=== PATIENT | male | born 1940 | race Caucasian/White ===

== ENCOUNTER 2017-06-12 12:33 | Emergency (ER) | payer OTHER ==
[~2017-06-12] VITALS: Ht 175.3 cm; Wt 102.5 kg
[~2017-06-12 12:33] MED LIST: AMITRIPTYLINE H10 M3; AMITRIPTYLINE H25 M2 PO; ASPIR 8181 MG PO; ASPIRIN325 PO; ATORVASTATIN CA40 MG PO; CARVEDILOL6.25 MG PO; CENTRUM SILVER1 EAC4 PO; CLARITIN10 MG PO; COLACE100 MG PO; CYCLOBENZAPRINE5 MG PO; EFFIENT10 MG PO; FERREX 150 PLU1 EAC1 PO; FLONASE 0.05%50 MCG INH; GLUCOPHAGE1000 MG PO; HYDROCHLOROTHIA25 M2 PO; LIDODERM 5%1 PATC1 TRANSDERM; LISINOPRIL2.5 MG PO; LISINOPRIL20 MG PO; METROGEL55 GM; MILK OF MA2400 MG/10 PO; NITROGLYCERIN0.4 MG SUBLING; NORCO 5-325 TA1 EACH PO; PAXIL10 MG PO; SPIRIVA INH; SYMBICORT160 MCG/4. INH; TYLENOL325 MG PO; VENTOLIN HFA 1818 GM INH; VOLTAREN GEL 1100 G2; WELLBUTRIN 100100 MG PO; ZANTAC 150MG T150 MG PO; ZOLOFT50 MG PO
[2017-06-12 14:01] LABS: URINE BILIRUBIN NEGATIVE (Negative); URINE BLOOD 3+ (Negative); URINE CLARITY SL CLOUDY; URINE COLOR YELLOW; URINE GLUCOSE-RANDOM* NEGATIVE (Negative); URINE KETONES TRACE (Negative); URINE NITRITE-REFLEX NEGATIVE (Negative); URINE PROTEIN (DIPSTICK) 2+ (Negative); URINE UROBILINOGEN 0.2 E.U./dl (0.2-1.0)
[2017-06-12 14:04] LABS: URINE LEUKOCYTES-REFLEX 2+ (Negative)
[2017-06-12 14:12] LABS: HYALINE CASTS 4-10 Moderate /LPF (None Seen); SQUAMOUS 0-3 Few /LPF (0-3); URINE WBC-REFLEX 6-15 Few /HPF (0-5)
[2017-06-12 14:13] LABS: AMORPHOUS URATES Few /LPF (None Seen); BACTERIA-REFLEX 1-9 Few /HPF (None Seen)
[2017-06-12 14:28] LABS: ABSOLUTE NEUTROPHILS 8.2 thou/uL (1.4-8.2); BASOPHILS 0.3 % (0.0-2.0); HEMATOCRIT 27.6 % (42.0-52.0); HEMOGLOBIN 9.1 gm/dL (14.0-18.0); MCHC 32.8 g/dL (28.0-37.0); MCV 88.6 fL (80.0-100.0); PLATELET COUNT 246 thou/uL (150-400); POLYS 83.7 % (36.0-66.0); RBC 3.12 mil/uL (4.50-6.00); RDW 21.5 % (10.5-14.5); WBC 9.8 thou/uL (4.0-11.0)
[2017-06-12 14:35] LABS: CALCIUM 9.9 mg/dL (8.5-10.1); CREATININE 1.1 mg/dL (0.7-1.3); POTASSIUM 5.2 mmol/L (3.5-5.1)
[2017-06-12 17:22] VITALS: BP 124/76
== END 2017-06-12 17:21 ==
LOC: ER 12:33
PROVIDERS: Emergency Medicine
DX: R60.0 Localized edema (principal); E87.5 Hyperkalemia; J44.9 Chronic obstructive pulmonary disease, unspecified; E11.9 Type 2 diabetes mellitus without complications; E78.00 Pure hypercholesterolemia, unspecified; K21.9 Gastro-esophageal reflux disease without esophagitis; I25.2 Old myocardial infarction; M19.90 Unspecified osteoarthritis, unspecified site; Z90.49 Acquired absence of other specified parts of digestive tract; G47.30 Sleep apnea, unspecified; Z88.0 Allergy status to penicillin; Z87.891 Personal history of nicotine dependence

== ENCOUNTER 2017-06-19 11:50 | Emergency (ER) | payer OTHER ==
[~2017-06-19] VITALS: Ht 175.3 cm; Wt 102.5 kg
--- NOTE | ~2017-06-19 | EKG ---
[place] [address] [place] [address] ELECTROCARDIOGRAM REPORT Name: TORIBIO ALONZO 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1940 Requested By: Tory West Order Number: [id number] MD: Berny Anderson Measurements Intervals Lan[place] Rate: 89 P: NE: QRS: 62 QRSD: 129 T: 32 QT: 352 QTc: 429 Interpretive Statements Atrial flutter Right ventricular conduction delay Compared to ECG 01/19/2014 07:29:01 Premature ventricular complexes are no longer present atrial flutter has replaced sinus rhythm Electronically Signed On 06-20-2017 13:18:14 CDT by Berny Anderson [email or web address] <ELECTRONICALLY SIGNED> By: Berny Anderson MD, [facility] 06/20/17 1318 1308 130 Berny Anderson MD, FAC /EPI
[2017-06-19 12:54] LABS: ABSOLUTE NEUTROPHILS 13.3 thou/uL (1.4-8.2); HEMATOCRIT 31.1 % (42.0-52.0); HEMOGLOBIN 9.9 gm/dL (14.0-18.0); LYMPHOCYTES 1.6 % (24.0-44.0); MCH 28.7 pg (26.0-34.0); MCHC 31.8 g/dL (28.0-37.0); MCV 90.2 fL (80.0-100.0); MONOCYTES 3.4 % (1.0-8.0); PLATELET COUNT 204 thou/uL (150-400); RBC 3.44 mil/uL (4.50-6.00); RDW 21.2 % (10.5-14.5); WBC 14.1 thou/uL (4.0-11.0)
[2017-06-19 13:00] LABS: CALCIUM 9.2 mg/dL (8.5-10.1); POTASSIUM 4.4 mmol/L (3.5-5.1)
[2017-06-19 13:09] LABS: TROPONIN-I 0.07 ng/mL (<0.06)
[2017-06-19 13:27] LABS: BE(vivo) 0.2 mmol/L (-2 to +3); HCO3 24.9 mmol/L (22.0-26.0); PCO2 40.4 mmHg (35.0-45.0); PO2 186.5 mmHg (80.0-100.0); pH 7.407 (7.360-7.450); sO2 99.3 % (92.0-98.0)
[2017-06-19 15:08] VITALS: BP 112/74
== END 2017-06-19 15:10 ==
LOC: ER 11:50
PROVIDERS: Emergency Medicine
DX: R06.00 Dyspnea, unspecified (principal); E11.9 Type 2 diabetes mellitus without complications; J44.9 Chronic obstructive pulmonary disease, unspecified; M19.90 Unspecified osteoarthritis, unspecified site; Z90.49 Acquired absence of other specified parts of digestive tract; F41.9 Anxiety disorder, unspecified; F32.9 Major depressive disorder, single episode, unspecified; E78.00 Pure hypercholesterolemia, unspecified; K21.9 Gastro-esophageal reflux disease without esophagitis; G47.30 Sleep apnea, unspecified; Z95.5 Presence of coronary angioplasty implant and graft; Z88.0 Allergy status to penicillin; Z87.891 Personal history of nicotine dependence; Z88.1 Allergy status to other antibiotic agents; Z99.11 Dependence on respirator [ventilator] status

== ENCOUNTER 2017-07-18 16:13 | Inpatient (IN) | payer OTHER ==
[~2017-07-18] VITALS: Ht 175.3 cm; Wt 95.7 kg
--- NOTE | ~2017-07-18 | CNG ---
[facility] [place] [address] CYTO-NONGYN REPORT PROCEDURE Name: TORIBIO RADER Room #: 352-P ADM IN M.R.#: [id number] Admission: 07/18/17 Date of : 42 Discharge: Report #: [id number] Path Case #: [id number] CYTOPATHOLOGY REPORT COLLECTION DATE: 07/19/2017 RECEIVED DATE: 07/20/2017 SUBMITTING PHYS: Dr. Brayan Bledsoe OTHER PHYS: Dr. Mauricio Gupta CLINICAL HISTORY: CHF, cardiomyopathy SPECIMEN(S) RECEIVED: A.Pleural fluid * * * * * * * * * * * * FINAL DIAGNOSIS: A. Pleural fluid: - No malignant cells identified. Paucicellular specimen with rare scattered mesothelial cells and inflammatory cells. PATHOLOGIST: Hilda Verduzco M.D. REPORT ELECTRONICALLY SIGNED BY: Hilda Verduzco M.D. DATE/TIME: 07/21/2017 12:52 * * * * * * * * * * * * GROSS PATHOLOGY: A. Pleural fluid: The specimen is submitted unfixed, labeled "Toribio Rader". Received by the Cytology Department is 16 mL of clear yellow fluid. One ThinPrep slide and a formalin fixed cell block were prepared. (lg 07.20.2017) AUTOMOTIVE DESIGNER(S): DENISHA Roach[facility] INITIAL CPT CODE(S): A; 20460, 53634 Professional services performed by [facility] at [facility] [address] [address] Technical services performed by [facility] at [address] [place] [address]., [address], [place] [address]. [facility] [address] [place] [address], [facility] [address] [place] [address] PHONE: [phone] [facility] [address] [place] [address] CYTO-NONGYN REPORT PROCEDURE Name: TORIBIO RADER Room #: 352-P ADM IN .R.#: [id number] Admission: 07/18/17 Date of : 42 Discharge: Report #: [id number] Path Case #: [id number] DIRECTOR: Wilman Anderson M.D. * * * END OF REPORT * * *
--- NOTE | ~2017-07-18 | 2DMMODE ---
[facility] [address] [place] [address] 2 D/M-MODE ECHOCARDIOGRAM Name: TORIBIO ALONZO Room #: 352-P ADM IN ..#: [id number] Admission: 07/18/17 Attend Phys: Mauricio Lopez Discharge: Date of : 42 Date of Service: 07/19/17 1347 Report #: [id number] THIS REPORT FOR: //name// APPROVED REPORT Study performed: 07/19/2017 12:09:23 EXAM: Comprehensive 2D, Doppler, and color-flow Echocardiogram Patient Location: Bedside Room #: [facility] Status: routine BSA: 2.13 HR: 108 bpm BP: 117/72 mmHg Rhythm: Atrial Fibrillation Other Information Study Quality: Fair Technically limited study due to no patient mobility, flat on back on vent.. Indications CAD, CHF, AFIB. Hx: [place], stents, DM, COPD Echo Enhancing Agent Indication: Endocardial border delineation Agent(s) / Amount(s) Used: Optison 4 cc 2D Dimensions LVEF(%): 39.13 (>50%) IVSd: 9.30 (7-11mm) LVOT Diam: 21.83 (18-24mm) LVDd: 55.62 mm PWd: 9.89 (7-11mm) LVDs: 44.93 (25-40mm) Aortic Root: 32.15 mm Gomez's LVEF: 39.13 % Volumes Left Atrial Volume (Systole) Single Plane 4CH: 60.87 mL Single Plane 2CH: 76.02 mL LA ESV Index: 35.00 mL/m2 Aortic Valve AoV Peak Gadiel.: 1.69 m/s AO Peak Gr.: 18.65 mmHg LVOT Max P.49 mmHg [facility] [address] [place] [address] 2 D/M-MODE ECHOCARDIOGRAM Name: TORIBIO ALONZO Room #: 352-P [facility] IN ..#: [id number] Admission: 07/18/17 Attend Phys: Mauricio Lopez Discharge: Date of : 42 Date of Service: 07/19/17 1347 Report #: [id number] LVOT Max V: 1.16 m/s ALESSIA Vmax: 2.56 cm2 Mitral Valve MV Decel. Time: 209.35 ms MV E Max Gaidel.: 1.23 m/s Pulmonary Valve PV Peak Gadiel.: 0.85 m/s PV Peak Gr.: 2.91 mmHg Tricuspid Valve TR Peak Gadiel.: 2.59 m/s RAP Estimate: 10.00 mmHg TR Peak Gr.: 26.78 mmHg PA Pressure: 37.00 mmHg Left Ventricle The left ventricle is normal size. Severe apical hypokinesis, no apical thrombus. The basal inferior and lateral romero are moderately hypokinetic. There is normal left ventricular wall thickness. Left ventricular systolic function is moderately decreased. LVEF is 35-40%. Severe diastolic dysfunction is present (restrictive filling). Right Ventricle Right ventricle is not well visualized. The right ventricular systolic function is normal. Atria Left atrium is mildly dilated. The right atrium size is normal. Aortic Valve The Aortic valve is sclerotic. Trace aortic regurgitation. There is no aortic valvular stenosis. Mitral Valve The mitral valve is normal in structure. Moderate to severe mitral regurgitation No evidence of mitral valve stenosis. Tricuspid Valve The tricuspid valve is normal in structure. Mild tricuspid regurgitation. Estimated PAP is 35-40mmHg. Pulmonic Valve The pulmonary valve is normal in structure. Trace pulmonic regurgitation. [facility] [email or web address] [address] 2 D/M-MODE ECHOCARDIOGRAM Name: CHERITORIBIO Bambi Room #: 352-P [facility] IN .R.#: [id number] Admission: 07/18/17 Attend Phys: Mauricio Lopez Discharge: Date of : 42 Date of Service: 07/19/17 1347 Report #: [id number] Great Vessels The aortic root is normal in size. IVC is dilated and collapses <50% with inspiration. Pericardium There is no pericardial effusion. Pleural effusion noted. <Conclusion> The left ventricle is normal size. Severe apical hypokinesis, no apical thrombus. The basal inferior and lateral romero are moderately hypokinetic. LVEF is 35-40%. Severe diastolic dysfunction Left atrium is mildly dilated. There is no aortic valvular stenosis. Trace aortic regurgitation. Moderate to severe mitral regurgitation Mild tricuspid regurgitation. Estimated PAP is 35-40mmHg. IVC is dilated and collapses <50% with inspiration. <ELECTRONICALLY SIGNED> By: Nolan Sanders MD, FACC 07/19/17 1347 134 134 Nolan Sanders MD, FACC /INF
--- NOTE | ~2017-07-18 | HC ---
[facility] [address] CONSULTATION Name: TORIBIO ALONZO Room #: 352-P ADM IN M.R.#: [id number] Admission: 07/18/17 Attend Phys: Kris Gonzáles Discharge: Date of : 42 Report #: [id number] THIS REPORT FOR: //name// CC: Mauricio Gupta DATE OF SERVICE: 07/19/2017 PULMONARY CONSULTATION REFERRING PHYSICIAN: Dr. Rutherford. REASON FOR REFERRAL: Chronic respiratory failure. HISTORY OF PRESENT ILLNESS: The patient is a 76-year-old white male who was transferred from [facility] for pulmonary and cardiac evaluation. A pulmonary consultation was requested. The patient several months. He was hospitalized around April of 2017 at [facility]. There, he sustained respiratory failure along with cardiac arrest. He subsequently had a tracheostomy placed and was sent to [facility]. While he was at [facility], weaning was attempted, this was not successful. It is possible that the patient may benefit from repeat cardiac and pulmonary evaluation and perhaps reconsider weaning trials again. Currently, he is tolerating the mechanical ventilation. He denies any dyspnea. He is awake, alert, follows commands. He moves all extremities. The patient says he has smoked for many years, he quit recently. He has been told that he has COPD. PAST MEDICAL HISTORY: Incomplete. According to records includes history of coronary artery disease, undergoing coronary artery bypass surgery, diabetes mellitus type 2, paroxysmal atrial fibrillation, history of acute kidney injury, apparent cardiac arrest on his last admission. PAST SURGICAL HISTORY: As mentioned above, status post tracheostomy, PEG tube placement. ALLERGIES: PENICILLIN AND GABAPENTIN, REACTIONS NOT SPECIFIED. CURRENT MEDICATIONS: Reviewed in the MAR. FAMILY HISTORY: Noncontributory. [facility] [address] [place] [address] CONSULTATION Name: TORIBIO ALONZO Room #: 352-P ADM IN M.R.#: [id number] Admission: 07/18/17 Attend Phys: Kris Gonzáles Discharge: Date of : 42 Report #: [id number] SOCIAL HISTORY: Tobacco history: As mentioned above. He is . No history of alcohol abuse. REVIEW OF SYSTEMS: As mentioned above, otherwise unremarkable. PHYSICAL EXAMINATION: GENERAL: He is awake, alert, in no apparent distress. VITAL SIGNS: Temperature is 99 degrees Fahrenheit, pulse is 100, respiratory rate is 20, blood pressure 100/60 mmHg, saturation 99%. HEENT: Normocephalic, atraumatic. NECK: Supple, without lymphadenopathy or thyromegaly, status post tracheostomy. CHEST: Breath sounds are fair with mild expiratory wheezes. CARDIOVASCULAR: Normal S1, S2. There are no murmurs or gallop. There is no JVD. There is no carotid bruit. Pulses are 2+/4+ bilaterally. ABDOMEN: Soft, nontender, no organomegaly or masses felt. GENITOURINARY: Deferred. RECTAL: Deferred. EXTREMITIES: There is no edema, cyanosis or clubbing. LABORATORY DATA: Portable chest x-ray shows cardiomegaly, mild bilateral interstitial infiltrates, appears to be chronic from prior chest x-rays. Appears to be subtle evidence of mild bilateral pleural effusions. Echocardiogram performed earlier today showed ejection fraction of 35-40%, apical hypokinesis, severe diastolic dysfunction. Pulmonary artery pressure measuring 35-40 mmHg. EKG shows atrial flutter. Electrolytes are normal. Liver enzymes are mildly elevated. WBC 6600, hemoglobin is 8.6, platelets are normal. Albumin 2.2. IMPRESSION: 1. Chronic respiratory failure in this 76-year-old white male. He underwent tracheostomy in April of this year following his hospitalization acute respiratory failure, apparent cardiac arrest. 2. Coronary artery disease with ischemic cardiomyopathy, ejection fraction 35%. He has had prior coronary bypass surgery. 3. Chronic obstructive pulmonary disease, remote history of tobacco use. Examination today shows presence of bilateral wheezing. 4. Pleural effusions. Chest x-ray shows mild pleural effusion. We will consider ultrasound. If pleural effusion is significant, thoracentesis will be recommended. 5. Severe protein calorie malnutrition with the current albumin level as mentioned above. 6. Diabetes mellitus, type 2. RECOMMENDATION AND DISCUSSION: I will await cardiac evaluation. In terms of pulmonary status, he does have bronchospasm. I would recommend trial of corticosteroids and continue bronchodilator therapy. [address] [address] CONSULTATION Name: TORIBIO ALONZO Room #: 352-P ADM IN M.R.#: [id number] Admission: 07/18/17 Attend Phys: Kris Gonzáles Discharge: Date of : 42 Report #: [id number] I do agree that the patient appears to be weanable from the ventilator. Deep venous thrombosis and gastrointestinal prophylaxis recommended. Recommend nutritional support. Thank you for this consultation. <ELECTRONICALLY SIGNED> By: Brayan Bledsoe MD 07/20/17 1311 1515 1844 Brayan Bledsoe MD /nt
--- NOTE | ~2017-07-18 | EKG ---
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1940 Requested By: Nolan Sanders Order Number: [id number] MD: Alex Schulz Measurements Intervals [place] Rate: 106 P: IN: QRS: 54 QRSD: 102 T: 23 QT: 347 QTc: 461 Interpretive Statements Atrial flutter Low voltage, extremity and precordial leads RSR' in V1 or V2, right VCD or RVH Baseline wander in lead(s) V6 Compared to ECG 06/19/2017 13:08:35 Low QRS voltage now present Right ventricular hypertrophy now present RSR' in V1 or V2 now present Electronically Signed On 07-19-2017 10:08:30 CDT by Alex Schulz [email or web address] <ELECTRONICALLY SIGNED> By: Alex Schulz MD 07/19/17 1008 5 5 Alex Schulz MD /EPI
--- NOTE | ~2017-07-18 | CATHLAB ---
[facility] [address] [facility] [place] [address] INVASIVE PROCEDURE REPORT Name: TORIBIO ALONZO Room #: 352-P DIS IN [facility]#: [id number] Admission: 07/18/17 Attend Phys: Mauricio Lopez Discharge: 07/25/17 Date of : 42 Date of Service: 07/26/17 1253 Report #: [id number] THIS REPORT FOR: //name// APPROVED REPORT Study performed: 07/25/2017 07:16:57 Patient Details Patient Status: In-Patient Room #: The patient is a 76 year-old male Procedures Performed cardiac cath Indication Dyspnea, Heart failure Risk Factors Hypercholesterolemia, Coronary Artery DiseaseRenal Failure, Diabetes Previous Procedures/Diagnoses Previous CABGPrevious PCI Procedure Narrative The patient was brought electively to the Cardiac Catheterization Laboratory and was prepped and draped in a sterile manner. The right femoral was infiltrated with 1% Lidocaine subcutaneous anesthesia. A 6 fr sheath was inserted into the right femoral artery. Coronary angiography was performed using coronary diagnostic catheters. The right coronary system was accessed and visualized with a Diagnostic catheter. The left coronary system was accessed and visualized with a Diagnostic catheter. Left ventricular/Aortic Valve gradient assessed via catheter pullback. Pre-demployment femoral angiogram was performed . Closure device was deployed with a 6 Fr Mynx. The patient tolerated the procedure well and there were no complications associated with the procedure. There was no hematoma. Unable to cannulate ostium of bland because of tortuous subclavian artery. However, BLAND visualized with flush injecction of subclavian using bland catheter. SVG to rca visualized with right svg catheter. SVG to circumflex visualized with right natalie catheter. Intraoperative Conscious Sedation Sedation start time: 8.02 Case end Time: 8.[address] [facility] [address] [place] [address] INVASIVE PROCEDURE REPORT Name: TORIBIO ALONZO Room #: 352-P [facility].#: [id number] Admission: 07/18/17 Attend Phys: Mauricio Lopez Discharge: 07/25/17 Date of : 42 Date of Service: 07/26/17 1253 Report #: [id number] Fluoro Time: 7.18 minutes Dose: DAP 34035.30 cGycm2 1251 mGy Contrast Type and Amount: Visipaque 150 ml Coronary Angiography The patient's coronary anatomy is right dominant. [place] Artery Percent Stenosis Flush injection of subclavian demonstrated patent bland graft to lad. SVG to diagonal with jump graft to 3 marginal branches was patent. SVG to pda of rca was patent without restenosis of stent in ostium of graft Diagnostic Cath Left Main 0% stenosis LAD mid lad chronically occluded Circumflex stent in mid circumflex chronically occluded Right Coronary proximal rca chronically occluded Left Ventriculography Left Ventriculography was not performed. Hemodynamics The aortic pressure is 115/71 mmHg with a mean of 81 mmHg. The left ventricular pressure is 101/20 mmHg with a mean of mmHg. The left ventricular end diastolic pressure is 25 mmHg. There was no gradient across the aortic valve upon pullback. Pullback from the left ventricle to the aorta revealed no gradient across the aortic valve. Conclusion 1. elevated LVEDP 2. Chronic occlusion of lad, circumflex, and rca 3. patent bland graft to lad 4. patent svg to diagonal and 3 marginal branches of the circumflex 5. svg to rca was patent with no restenosis of stent in the ostium of the graft Recommendations additional diuresis [facility] [address] [address] INVASIVE PROCEDURE REPORT Name: ALONZOTORIBIO Bambi Room #: 352-P [facility] IN .R.#: [id number] Admission: 07/18/17 Attend Phys: Mauricio Lopez Discharge: 07/25/17 Date of : 42 Date of Service: 07/26/17 1253 Report #: [id number] recommend anticoagulation because of atrial flutter add coreg and aldactone <ELECTRONICALLY SIGNED> By: Guanako Luke MD, FACC 07/26/17 1253 1253 1253 Guanako Luke MD, FACC /INF
--- NOTE | ~2017-07-18 | D ---
[facility] [place] [address] DISCHARGE SUMMARY Name: TORIBIO ALONZO Room #: 352-P [facility] IN M.R.#: [id number] Admission: 07/18/17 Attend Phys: Kris Gonzáles Discharge: 07/25/17 Date of : 42 Report #: [id number] THIS REPORT FOR: //name// CC: Mauricio Gupta DATE OF SERVICE: 07/25/2017 FINAL DIAGNOSES: 1. Acute cardiac arrest. 2. Ischemic cardiomyopathy. 3. Coronary artery disease. 4. Chronic hypoxic respiratory failure. 5. Chronic kidney disease. 6. Acute on chronic systolic congestive heart failure. HOSPITAL COURSE: The patient was admitted electively from [facility] for evaluation of treatable cardiac disease. He had a recent history of chronic respiratory failure and had failed to wean successfully from the ventilator for any significant amount of time. He had known coronary artery disease. Echocardiogram revealed ejection fraction of 35%. He was also noted to have a left pleural effusion, which he underwent a thoracentesis. He was also found to have significant edema and anasarca related to underlying congestive heart failure from cardiomyopathy and chronic kidney disease. He was followed by the Pulmonary, Cardiology, and Renal services during his stay and received others usual supportive care including usual medications, diet and ventilator care. Dr. Wade adjusted medications and he was beginning to diurese to some degree with a 2-3 kg weight loss over the last couple of days. As mentioned, he had a successful thoracentesis. The Pulmonary Service did not feel his status was stable enough to attempt ventilator weaning at this point. He underwent cardiac catheterization by Dr. Connelly; please see that separately dictated report, but it appears there were no treatable lesions. He was noted to have a cardiomyopathy with EF of 35%. Then, on the evening of 07/25/2017, he developed sudden bradycardia, which progressed almost instantly to pulseless electrical activity and asystole. A code blue was called and managed in the usual fashion. According to the report, he never regained a stable rhythm. He was pronounced due to his underlying medical conditions. <ELECTRONICALLY SIGNED> By: Guanako Rutherford MD 07/27/17 0829 1313 1324 Guanako Rutherford MD /nt
--- NOTE | ~2017-07-18 | H ---
[facility] [place] [address] HISTORY AND PHYSICAL Name: ALONZOTORIBIO Bambi Room #: 352-P ADM IN M.R.#: [id number] Admission: 07/18/17 Attend Phys: Kris Gonzáles Discharge: Date of : 42 Report #: [id number] THIS REPORT FOR: //name// CC: Mauricio Gupta DATE OF SERVICE: 07/18/2017 CHIEF COMPLAINT: Shortness of breath. HISTORY OF PRESENT ILLNESS: The patient is a 76-year-old gentleman admitted from [facility] for cardiac and pulmonary evaluation due to his respiratory failure. He had a recent illness treated at an outlying facility and has been at the LTAC facility for several months on the ventilator. He had an acute kidney injury and is requiring hemodialysis. His kidneys recovered and dialysis has ended several weeks ago. He had a slow weaning process, but gradually was able to wean from the ventilator briefly. There was a period where he was on trach shield and capping trials, but this did not last. He was back in the skilled portion and then readmitted to the LTAC for ventilator weaning; however, what the Pulmonary and Medicine Services are seeing now is that any attempts at CPAP trials, he develops hypoxia and some chest pain. The working possibility is that he has underlying ischemic heart disease that is limiting his ventilator weaning attempts. The requested plan is for cardiac evaluation including catheterization to assess for ischemic lesions and pulmonary assessment with consideration of thoracentesis for bilateral pleural effusions, then reattempt ventilator weaning. PAST MEDICAL HISTORY: Coronary artery disease. He had bypass surgery several years ago, recent acute kidney injury, recent respiratory failure, diabetes type 2, paroxysmal AFib. FAMILY HISTORY: Noncontributory. SOCIAL HISTORY: Unknown. ALLERGIES: PENICILLIN AND GABAPENTIN. MEDICATIONS: Please see the nursing list from the facility. REVIEW OF SYSTEMS: He complains of some chest discomfort. No nausea, vomiting, diarrhea, constipation. PHYSICAL EXAMINATION: VITAL SIGNS: Temperature 37.2, pulse 107, respirations 20, blood pressure 103/60. GENERAL: He is awake and alert. LUNGS: Clear. [facility] [address] [place] [address] HISTORY AND PHYSICAL Name: ALONZOTORIBIO Bambi Room #: 352-P [facility] IN M.R.#: [id number] Admission: 07/18/17 Attend Phys: Kris Gonzáles Discharge: Date of : 42 Report #: [id number] HEART: Regular. ABDOMEN: Soft, normoactive bowel sounds. EXTREMITIES: No edema. ASSESSMENT: 1. Ischemic heart disease. 2. Coronary artery disease with remote history of cardiac bypass. 3. Chronic hypoxic respiratory failure. 4. Ventilator dependence. 5. Acute kidney injury, resolved. 6. Diabetes type 2. 7. Pleural effusions. 8. Anemia of chronic disease. 9. Moderate protein-calorie malnutrition. PLAN: I have asked the Cardiovascular and Pulmonary services to assess him and consider cardiac catheterization and thoracentesis. <ELECTRONICALLY SIGNED> By: Guanako Rutherford MD 07/20/17 0822 1239 1252 Guanako Rutherford MD /von
--- NOTE | ~2017-07-18 | HC ---
[facility] [place] [address] CONSULTATION Name: TORIBIO ALONZO Room #: 352-P [facility] IN M.R.#: [id number] Admission: 07/18/17 Attend Phys: Kris Gonzáles Discharge: Date of : 42 Report #: [id number] THIS REPORT FOR: //name// CC: Mauricio Gupta DATE OF SERVICE: 07/21/2017 ATTENDING PHYSICIAN:, Dr. Rutherford. REASON FOR CONSULTATION: Elevating creatinine and hyperkalemia. HISTORY OF PRESENT ILLNESS: This 76-year-old patient, known to our service, had an out of hospital cardiac arrest in April, acute renal failure requiring dialysis and was on dialysis for several weeks, eventually weaned off dialysis, was at [facility] where we saw him, managed appropriately. Attempts at weaning off the ventilator were unsuccessful. He was briefly off but back on the ventilator and is now still on the ventilator and transferred to this hospital for further evaluation of possible ischemic cardiac disease. He has known previous coronary bypass and both systolic and diastolic dysfunction on echocardiogram. PAST MEDICAL HISTORY: Diabetes mellitus, previous coronary bypass, chronic atrial fibrillation, previous out of hospital cardiac arrest and resuscitation as mentioned, previous knee replacements, cholecystectomy and orchiectomy, presumably for prostate cancer. He also has a previous history of sleep apnea. FAMILY HISTORY: Noncontributory. SOCIAL HISTORY: Heavy smoker, not smoking anymore obviously. ALLERGIES: REPORTEDLY TO PENICILLIN. CURRENT MEDICATIONS: Include Albuterol ProAir inhaler, aspirin 81 mg daily, Lipitor 40 mg daily, Wellbutrin 100 mg b.i.d., Cardizem 60 mg every 6 hours, Lovenox, furosemide 40 mg p.o. daily, insulin, IV methylprednisolone 40 mg q.8, omeprazole 40 mg daily. He had been on potassium 40 mEq twice daily, last administered yesterday. REVIEW OF SYSTEMS: Cannot be taken. The patient is awake. He is on the ventilator through tracheostomy. PHYSICAL EXAMINATION: GENERAL: This is a chronically ill-appearing gentleman. He is awake, following simple commands. SKIN: Unremarkable. SKELETAL: Well developed, well nourished. [facility] [address] [place] [address] CONSULTATION Name: TORIBIO ALONZO Room #: 352-P [facility] IN ..#: [id number] Admission: 07/18/17 Attend Phys: Kris Gonzáles Discharge: Date of : 42 Report #: [id number] HEENT: Extraocular movements are full. No scleral icterus. Hearing and vision seem to be grossly intact. Tracheostomy tube in place. CHEST: Shows coarse breath sounds with wheezing. HEART: Irregular and distant. ABDOMEN: Soft, nontender and somewhat distended. EXTREMITIES: Show 1+ peripheral lower extremity edema. LABORATORY DATA: Sodium 133, potassium 6, chloride 98, bicarbonate 26, BUN 46, creatinine 1.6, glucose 217. ASSESSMENT: 1. Elevating creatinine. Creatinine is up from 0.9 to 1.6. He was getting high doses of potassium, along with that his potassium is up to 6, but inspection of his monitor tracing shows no evidence of hyperkalemic changes. He has chronic atrial fibrillation. If anything, he is tachycardic. Treatment will include continuation of IV Lasix, discontinuation of the potassium, treatment of his blood sugar. Volume status does appear to still be elevated despite the Lasix and elevating creatinines and blood pressures are a bit lower I believe and that may be contributing to his decreased renal perfusion and renal function. He does have a Hoskins catheter in place as well. 2. Congestive heart failure, both systolic and diastolic. 3. Advanced chronic obstructive pulmonary disease with respiratory failure, on chronic ventilator. 4. Coronary artery disease, status post bypass. 5. Diabetes mellitus. By: 1023 [id number] Florencio Wade MD /nt
--- NOTE | ~2017-07-18 | EKG ---
[address] [address] ELECTROCARDIOGRAM REPORT Name: TORIBIO ALONZO Room #: 352-P ADM IN M.R.#: [id number] Admission: 07/18/17 Attend Phys: Kris Gonzáles Discharge: Date of : 42 Report #: [id number] THIS REPORT FOR: //name// [facility] Test Date: 2017-07-21 Test Time: 09:53:08 Pat Name: TORIBIO ALONZO Department: Room: 352 Gender: M [employer] Clerk: Jesse PAEZ : 1940 Requested By: Florencio aWde Order Number: [id number] MD: Alex Schulz Measurements Intervals [place] Rate: 100 P: [place]: QRS: 77 QRSD: 101 T: 41 QT: 340 QTc: 439 Interpretive Statements Atrial flutter Low voltage, extremity and precordial leads RSR' in V1 or V2, probably normal variant Electronically Signed On 07-21-2017 14:03:04 CDT by Alex Schulz [email or web address] <ELECTRONICALLY SIGNED> By: Alex Schulz MD 07/21/17 1403 Alex Schulz MD /CHERELLE
--- NOTE | ~2017-07-18 | HC ---
[facility] [place] [address] CONSULTATION Name: TORIBIO ALONZO Room #: 352-P ADM IN ..#: [id number] Admission: 07/18/17 Attend Phys: Kris Gonzáles Discharge: Date of : 42 Report #: [id number] THIS REPORT FOR: //name// CC: Mauricio Gupta DATE OF SERVICE: 07/19/2017 CHIEF COMPLAINT: Respiratory failure. HISTORY OF PRESENT ILLNESS: The patient is a 76-year-old man with respiratory failure, status post tracheotomy who was transferred from the [facility] to this institution. He is status post tracheostomy, all history was obtained from chart records. A brief HPI was able to be obtained and the patient is currently complaining of some mild chest discomfort. He also complains of pain Hoskins catheter. PAST MEDICAL HISTORY: Obtained from chart records and indicates that he is status post respiratory failure, admitted on 04/21/2017, with respiratory failure, status post out of hospital cardiac arrest and intubation. I do not know which hospital he had come from originally, he had complication of atrial flutter, acute kidney injury, and hypoxic brain injury. Other past medical history significant for prior coronary artery bypass graft surgery at this institution, LV function status is not known. He has morbid obesity and sleep apnea. PAST SURGICAL HISTORY: Bilateral knee replacements, cholecystectomy, and orchiectomy. FAMILY HISTORY: Noncontributory. [id number]-[id number] smoker, but he had quit. ALLERGIES: To GABAPENTIN and PENICILLIN. MEDICATIONS: DuoNeb, Lipitor, Cardizem, Reglan, and Protonix. REVIEW OF SYSTEMS: Not obtainable. PHYSICAL EXAMINATION: VITAL SIGNS: Blood pressure is 130s/70s, pulse is in the 100s. GENERAL: The patient is alert, in no apparent distress. NECK: Supple. No jugular venous distention. Tracheostomy site is clean, dry dressing. CARDIOVASCULAR: Irregular. LUNGS: Breath sounds are coarse bilaterally. [facility] [address] [place] [address] CONSULTATION Name: TORIBIO ALONZO Room #: 352-P [facility] IN .R.#: [id number] Admission: 07/18/17 Attend Phys: Kris Gonzáles Discharge: Date of : 42 Report #: [id number] ABDOMEN: Nontender. EXTREMITIES: There is no peripheral edema. LAB DATA: There are no labs from this institution. From the [facility], his BUN was 30 and his creatinine was 0.6. IMPRESSION: 1. Congestive heart failure. Continue diuretics, matching his I's and O's. We will check an echocardiogram to assess left ventricular function. 2. Coronary artery disease, status post coronary artery bypass graft. He is status post cardiac arrest. We will continue with telemetry monitoring. An ischemic workup is not indicated because of his poor performance status. 3. Hypertension. We will continue with Cardizem via his PEG. 4. Atrial arrhythmias. As noted above, we will continue with current medical therapy with Cardizem. We will have to investigate as to whether or not he was anticoagulated at the other institution. Records are not available at this time. By: 0900 1001 Nolan Sanders MD, FACC /nt
[2017-07-18 20:30] VITALS: BP 133/77
[2017-07-18 23:39] VITALS: BP 101/67
[2017-07-19 03:09] VITALS: BP 127/79
[2017-07-19 05:32] LABS: HEMATOCRIT 26.3 % (42.0-52.0); HEMOGLOBIN 8.6 gm/dL (14.0-18.0); MCH 27.7 pg (26.0-34.0); MCHC 32.7 g/dL (28.0-37.0); MCV 84.7 fL (80.0-100.0); RBC 3.1 mil/uL (4.50-6.00); RDW 20.6 % (10.5-14.5); WBC 6.6 thou/uL (4.0-11.0)
[2017-07-19 05:42] LABS: APTT 30.5 Seconds (24.5-32.8); INR 1.1
[2017-07-19 05:54] LABS: ALBUMIN 2.2 g/dL (3.4-5.0); CALCIUM 9.2 mg/dL (8.5-10.1); CREATININE 0.9 mg/dL (0.7-1.3); POTASSIUM 3.8 mmol/L (3.5-5.1); TOTAL BILIRUBIN 0.5 mg/dL (<0.1-1.0); TOTAL PROTEIN 5.2 g/dL (6.4-8.2)
[2017-07-19 08:00] VITALS: BP 117/72
[2017-07-19 12:00] VITALS: BP 103/60
[2017-07-19 16:00] VITALS: BP 107/73
[2017-07-19 17:07] LABS: CLARITY SLIGHTLY CLOUDY; COLOR YELLOW; SOURCE RIGHT THORA; TOTAL VOLUME 58 mL
[2017-07-19 18:02] LABS: BF NEUTROPHILS 15; BF NUCLEATED CELLS 174; BF RBC 330
[2017-07-19 18:03] LABS: BF MACROPHAGE 50
[2017-07-19 19:09] VITALS: BP 100/63
[2017-07-19 23:48] VITALS: BP 105/65
[2017-07-20 03:24] VITALS: BP 107/66
[2017-07-20 07:08] LABS: HEMATOCRIT 26.9 % (42.0-52.0); HEMOGLOBIN 8.7 gm/dL (14.0-18.0); MCH 27.4 pg (26.0-34.0); MCHC 32.4 g/dL (28.0-37.0); MCV 84.5 fL (80.0-100.0); RBC 3.18 mil/uL (4.50-6.00); RDW 20.4 % (10.5-14.5); WBC 6.2 thou/uL (4.0-11.0)
[2017-07-20 07:18] LABS: CALCIUM 9.3 mg/dL (8.5-10.1); CREATININE 1.2 mg/dL (0.7-1.3); POTASSIUM 4.7 mmol/L (3.5-5.1)
[2017-07-20 07:31] VITALS: BP 114/66
[2017-07-20 08:46] LABS: SOURCE THORACENTESIS
[2017-07-20 11:47] VITALS: BP 104/69
[2017-07-20 16:10] VITALS: BP 153/103
[2017-07-20 17:09] LABS: BODY FLUID ALBUMIN 1.3 g/dL (()); BODY FLUID AMYLASE 56 U/L (()); BODY FLUID GLUCOSE 150 mg/dL (()); BODY FLUID LDH 110 IU/L (()); BODY FLUID PROTEIN 2.4 g/dL (())
[2017-07-20 19:15] VITALS: BP 146/95
[2017-07-21 00:14] VITALS: BP 100/72
[2017-07-21 03:54] LABS: CALCIUM 9.5 mg/dL (8.5-10.1); CREATININE 1.6 mg/dL (0.7-1.3)
[2017-07-21 04:01] VITALS: BP 108/75
[2017-07-21 04:14] LABS: HEMATOCRIT 27.7 % (42.0-52.0); HEMOGLOBIN 8.9 gm/dL (14.0-18.0); MCH 27.4 pg (26.0-34.0); MCHC 32.3 g/dL (28.0-37.0); MCV 84.9 fL (80.0-100.0); RBC 3.26 mil/uL (4.50-6.00); RDW 19.6 % (10.5-14.5)
[2017-07-21 07:43] VITALS: BP 102/71
[2017-07-21 11:06] VITALS: BP 114/71
[2017-07-21 14:40] LABS: ALBUMIN 2.5 g/dL (3.4-5.0); CALCIUM 9.4 mg/dL (8.5-10.1); CREATININE 1.6 mg/dL (0.7-1.3); PHOSPHORUS 4.4 mg/dL (2.5-4.9); POTASSIUM 5.9 mmol/L (3.5-5.1)
[2017-07-21 15:54] VITALS: BP 123/85
[2017-07-21 19:45] VITALS: BP 119/86
[2017-07-22] VITALS: BP 102/77
[2017-07-22 03:45] VITALS: BP 123/88
[2017-07-22 06:24] LABS: HEMATOCRIT 28.2 % (42.0-52.0); HEMOGLOBIN 9.1 gm/dL (14.0-18.0); MCH 27.2 pg (26.0-34.0); MCHC 32.3 g/dL (28.0-37.0); MCV 84.3 fL (80.0-100.0); RBC 3.34 mil/uL (4.50-6.00); RDW 20.2 % (10.5-14.5); WBC 9.9 thou/uL (4.0-11.0)
[2017-07-22 06:47] LABS: ALBUMIN 2.8 g/dL (3.4-5.0); CALCIUM 9.7 mg/dL (8.5-10.1); CREATININE 1.7 mg/dL (0.7-1.3); PHOSPHORUS 5.1 mg/dL (2.5-4.9)
[2017-07-22 06:55] LABS: POTASSIUM 6.6 mmol/L (3.5-5.1)
[2017-07-22 08:13] VITALS: BP 116/83
[2017-07-22 11:40] VITALS: BP 121/79
[2017-07-22 16:08] VITALS: BP 125/80
[2017-07-22 16:35] LABS: CREATININE 1.8 mg/dL (0.7-1.3); POTASSIUM 5.1 mmol/L (3.5-5.1)
[2017-07-22 19:05] VITALS: BP 118/77
[2017-07-23 04:10] VITALS: BP 117/67
[2017-07-23 06:03] LABS: ALBUMIN 2.4 g/dL (3.4-5.0); CALCIUM 8.9 mg/dL (8.5-10.1); CREATININE 1.6 mg/dL (0.7-1.3); PHOSPHORUS 4.4 mg/dL (2.5-4.9)
[2017-07-23 06:11] LABS: POTASSIUM 3.5 mmol/L (3.5-5.1)
[2017-07-23 07:25] VITALS: BP 124/74
[2017-07-23 11:24] VITALS: BP 98/68
[2017-07-23 15:46] VITALS: BP 106/62
[2017-07-23 20:00] VITALS: BP 117/84
[2017-07-24] VITALS: BP 108/71
[2017-07-24 03:58] VITALS: BP 100/62
[2017-07-24 07:59] VITALS: BP 130/73
[2017-07-24 08:07] LABS: ALBUMIN 2.3 g/dL (3.4-5.0); CALCIUM 8.5 mg/dL (8.5-10.1); CREATININE 1.4 mg/dL (0.7-1.3); PHOSPHORUS 3.8 mg/dL (2.5-4.9)
[2017-07-24 08:08] LABS: POTASSIUM 2.6 mmol/L (3.5-5.1)
[2017-07-24 11:48] VITALS: BP 122/75
[2017-07-24 15:43] VITALS: BP 102/67
[2017-07-24 20:00] VITALS: BP 124/70
[2017-07-25] VITALS (14 sets, daily range): BP systolic 90–151; BP diastolic 51–101
[2017-07-25 05:42] LABS: HEMATOCRIT 27.6 % (42.0-52.0); HEMOGLOBIN 9.1 gm/dL (14.0-18.0); MCH 27.4 pg (26.0-34.0); MCV 82.9 fL (80.0-100.0); RBC 3.32 mil/uL (4.50-6.00); RDW 20.2 % (10.5-14.5); WBC 15.7 thou/uL (4.0-11.0)
[2017-07-25 05:45] LABS: CALCIUM 8.8 mg/dL (8.5-10.1); CREATININE 1.2 mg/dL (0.7-1.3)
[2017-07-25 05:50] LABS: POTASSIUM 2.4 mmol/L (3.5-5.1)
[2017-07-25 08:49] LABS: BE(vivo) 5.3 mmol/L (-2 to +3); HCO3 26.4 mmol/L (22.0-26.0); PCO2 26.5 mmHg (35.0-45.0); PO2 70.3 mmHg (80.0-100.0); pH 7.616 (7.360-7.450); sO2 96.7 % (92.0-98.0)
[2017-07-25 11:34] LABS: BE(vivo) 6.5 mmol/L (-2 to +3); HCO3 30.5 mmol/L (22.0-26.0); PCO2 41.7 mmHg (35.0-45.0); pH 7.482 (7.360-7.450)
[2017-07-25 11:35] LABS: PO2 47.2 mmHg (80.0-100.0)
== END 2017-07-25 19:48 | DRG 207 ==
LOC: 3W 16:13
PROVIDERS: Internal Medicine; Internal Medicine Geriatric Medicine; Internal Medicine Nephrology; Internal Medicine Pulmonary Disease
PROC: 5A1955Z Respiratory Ventilation, Greater than 96 Consecutive Hours (ICD-10-PCS; principal; 2017-07-18)
PROC: 0JPV3XZ Removal of Tunneled Vascular Access Device from Upper Extremity Subcutaneous Tissue and Fascia, Percutaneous Approach (ICD-10-PCS; 2017-07-19)
PROC: B24BZZ4 Ultrasonography of Heart with Aorta, Transesophageal (ICD-10-PCS; 2017-07-19)
PROC: 0W993ZX Drainage of Right Pleural Cavity, Percutaneous Approach, Diagnostic (ICD-10-PCS; 2017-07-20)
PROC: 5A12012 Performance of Cardiac Output, Single, Manual (ICD-10-PCS; 2017-07-24)
DX: J96.21 Acute and chronic respiratory failure with hypoxia (principal); E43 Unspecified severe protein-calorie malnutrition; I50.43 Acute on chronic combined systolic (congestive) and diastolic (congestive) heart failure; I48.92 Unspecified atrial flutter; I13.0 Hypertensive heart and chronic kidney disease with heart failure and stage 1 through stage 4 chronic kidney disease, or unspecified chronic kidney disease; N17.9 Acute kidney failure, unspecified; Z99.11 Dependence on respirator [ventilator] status; J90 Pleural effusion, not elsewhere classified; J44.1 Chronic obstructive pulmonary disease with (acute) exacerbation; I48.2 Chronic atrial fibrillation; I46.9 Cardiac arrest, cause unspecified; E87.5 Hyperkalemia; D63.8 Anemia in other chronic diseases classified elsewhere; N18.9 Chronic kidney disease, unspecified; E11.22 Type 2 diabetes mellitus with diabetic chronic kidney disease; I25.10 Atherosclerotic heart disease of native coronary artery without angina pectoris; I25.5 Ischemic cardiomyopathy; I48.0 Paroxysmal atrial fibrillation; E87.6 Hypokalemia; E66.01 Morbid (severe) obesity due to excess calories; Z96.653 Presence of artificial knee joint, bilateral; Z90.49 Acquired absence of other specified parts of digestive tract; Z95.1 Presence of aortocoronary bypass graft; Z68.31 Body mass index [BMI] 31.0-31.9, adult; Z87.891 Personal history of nicotine dependence; Z93.0 Tracheostomy status; Z93.1 Gastrostomy status; Z85.46 Personal history of malignant neoplasm of prostate; Z79.51 Long term (current) use of inhaled steroids; Z79.4 Long term (current) use of insulin; Z79.82 Long term (current) use of aspirin; Z79.899 Other long term (current) drug therapy; Z88.0 Allergy status to penicillin; Z88.8 Allergy status to other drugs, medicaments and biological substances
CPT/HCPCS: 10879; 27001